=== PATIENT | female | born 1980 | race Caucasian/White ===

== ENCOUNTER → 2016-10-08 | Outpatient (CLI) | payer BC ==
[~2016-10-08] MED LIST: CIPR500T19; ENDOCORT PO; ENTO3CAP5 PO; FLAG500T; FLUC10TA; IMURAN; INFL10VL IV; MIRA33504 PO; PERC5TAB8; PRENATAL VITAMIN PO; REMICADE IV
[2016-10-08 12:28] LABS: BASO % 0.4 % (0.0-1.0); EOS # 0.1 K/mm3 (0.0-0.50); LARGE UNSTAINED CELL # 0.1 K/mm3 (0.0-0.4); LARGE UNSTAINED CELL % 1.7 % (0.0-4.0); LYMPH # 1.9 K/mm3 (1.5-4.5); LYMPH % 35.1 % (24.0-44.0); MEAN CORPUSCULAR HGB CONC 32.7 g/dl (32.0-36.5); MEAN CORPUSCULAR VOLUME 85.8 fl (80.0-96.0); MONO # 0.4 K/mm3 (0.0-0.8); MONO % 6.3 % (0.0-5.0); NEUTROPHILS % 54.6 % (36.0-66.0); PLATELET COUNT, AUTOMATED 199 k/mm3 (150-450); RED CELL DISTRIBUTION WIDTH 13.5 % (11.5-14.5); WHITE BLOOD COUNT 5.5 K/mm3 (4.0-10.0)
[2016-10-08 13:21] LABS: FOLATE 15.1 NG/ML; VITAMIN B12 LEVEL 444 PG/ML
[2016-10-08 13:22] LABS: ALBUMIN 3.8 GM/DL (3.2-5.2); ALBUMIN/GLOBULIN RATIO 1.09 (1.00-1.93); ALKALINE PHOSPHATASE 109 U/L (45-117); ALT/SGPT 9 U/L (12-78); ANION GAP 9 MEQ/L (8-16); AST/SGOT 15 U/L (15-37); BILIRUBIN,TOTAL 0.3 MG/DL (0.2-1.0); BLOOD UREA NITROGEN 13 MG/DL (7-18); CALCIUM LEVEL 9.3 MG/DL (8.5-10.1); CARBON DIOXIDE LEVEL 25 MEQ/L (21-32); CHLORIDE LEVEL 106 MEQ/L (98-107); CREATININE FOR GFR 0.56 MG/DL (0.55-1.02); GLOMERULAR FILTRATION RATE > 60.0 (>60); GLUCOSE, FASTING 97 MG/DL (70-105); POTASSIUM SERUM 3.8 MEQ/L (3.5-5.1); SODIUM LEVEL 140 MEQ/L (136-145); TOTAL PROTEIN 7.3 GM/DL (6.4-8.2)
[2016-10-08 13:37] LABS: ERYTHROCYTE SEDIMENTATION RATE 31 mm/hr (0-20)
== END ==
LOC: M LAB 11:24
PROVIDERS: ATTEND Physician Assistant Medical
DX: K50.80 Crohn's disease of both small and large intestine without complications (principal)

== ENCOUNTER 2020-01-12 15:41 | Inpatient (IN) | payer BC, OTHER ==
[~2020-01-12] VITALS: Ht 165.1 cm; Wt 57.1 kg
[2020-01-12] MEDS ORDERED: NS 1,000 ML IV ONE (16:15)
[2020-01-12] MEDS ORDERED: KETOROLAC 30 MG/ML 1ML VIAL IV ONE (16:15)
[2020-01-12] MEDS ORDERED: PANTOPRAZOLE 40MG VIAL (C9113 PER 1) IV ONE (16:15)
[2020-01-12 16:39] LABS: BASO % 0.2 % (0.0-1.0); EOS # 0.1 10^3/uL (0.0-0.5); EOS % 0.5 % (0.0-3.0); HEMATOCRIT 27.1 % (36.0-47.0); HEMOGLOBIN 7.8 g/dl (12.0-15.5); LYMPH # 3.4 10^3/uL (1.5-5.0); LYMPH % 26.4 % (24.0-44.0); MEAN CORPUSCULAR HEMOGLOBIN 23.8 pg (27.0-33.0); MEAN CORPUSCULAR HGB CONC 28.8 g/dl (32.0-36.5); MEAN CORPUSCULAR VOLUME 82.6 fl (80.0-96.0); MONO # 1.1 10^3/uL (0.0-0.8); MONO % 8.9 % (0.0-5.0); NEUTROPHILS # 8.1 10^3/uL (1.5-8.5); NEUTROPHILS % 63.5 % (36.0-66.0); PLATELET COUNT, AUTOMATED 376 10^3/uL (150-450); RED BLOOD COUNT 3.28 10^6/uL (4.00-5.40); WHITE BLOOD COUNT 12.8 10^3/uL (4.0-10.0)
[2020-01-12 17:20] LABS: ALBUMIN 3.1 GM/DL (3.2-5.2); ALT/SGPT 10 U/L (12-78); BILIRUBIN,DIRECT < 0.1 MG/DL (0.0-0.2); BILIRUBIN,TOTAL 0.3 MG/DL (0.2-1.0); BLOOD UREA NITROGEN 16 MG/DL (7-18); CARBON DIOXIDE LEVEL 28 MEQ/L (21-32); CHLORIDE LEVEL 101 MEQ/L (98-107); CREATININE FOR GFR 0.66 MG/DL (0.55-1.30); GLOMERULAR FILTRATION RATE > 60.0 (>58); GLUCOSE, FASTING 89 MG/DL (70-100); LIPASE 60 U/L (73-393); POTASSIUM SERUM 2.8 MEQ/L (3.5-5.1); SODIUM LEVEL 134 MEQ/L (136-145); TOTAL PROTEIN 6.6 GM/DL (6.4-8.2)
[2020-01-12] MEDS ORDERED: POTASSIUM CHLORIDE 10 MEQ SR TABLET PO ONE ×2 (17:30→22:00)
[2020-01-12] MEDS ORDERED: KCL 10MEQ/100ML SWI (KRUN) 10 MEQ in IV 1 EA IV ONE ×4 (17:30)
[2020-01-12] MEDS ORDERED: ONDANSETRON 4MG/2ML VIAL IV ONE (17:45)
[2020-01-12 18:03] VITALS: BP 128/88
[2020-01-12 18:18] VITALS: BP 125/84
[2020-01-12 19:00] VITALS: BP 126/79
[2020-01-12] MEDS: KCL 20MEQ in NS 1000ML 1,000 ML IV SCH (19:02)
[2020-01-12] MEDS ORDERED: MELA1TAB9 PO (19:10)
[2020-01-12] MEDS ORDERED: MULTCAP PO (19:10)
[2020-01-12] MEDS ORDERED: PRED10TA2 PO (19:10)
[2020-01-12] MEDS ORDERED: MESA0.37 PO (19:10)
[2020-01-12] MEDS ORDERED: ACET-653 PO (19:10)
[2020-01-12] MEDS ORDERED: PANT40TA29 PO (19:10)
[2020-01-12] MEDS ORDERED: STEL90IN SC (19:10)
[2020-01-12] MEDS ORDERED: UNIS25TA3 PO (19:10)
[2020-01-12] MEDS ORDERED: ONDA4TAB6 SL (19:10)
[2020-01-12] MEDS ORDERED: DICY20TA11 PO (19:10)
[2020-01-12] MEDS ORDERED: BUDE3CAP PO (19:10)
[2020-01-12] MEDS ORDERED: POTA10TA16 PO (19:10)
--- NOTE | 2020-01-12 19:12 | HPEPDOC ---
[facility] Medical History & Physical Date of Admission Jan 12, 2020 Date of Service: Jan 12, 2020 Attending Physician: KAM WOODS MD History and Physical CHIEF COMPLAINT: Abdominal pain HISTORY OF PRESENT ILLNESS: 39-year-old female with past medical history of Crohn's disease, multiple bowel strictures and bowel resections, presents from home with abdominal pain. Patient was recently admitted at [facility] for Crohn's flareup, underwent EGD, colonoscopy which did not anything pertinent as per patient. She reports that she also had a CT enterography which showed a stricture in her small bowel. She reports chronic abdominal pain which slightly worsened over the last few days and she thought her stricture was worsening and causing her to have a bowel obstruction. She is very focused on her illness and anxious about getting a stricture/obstruction that she doesn't eat anything at home. She reports very poor oral intake for the past month and significant weight loss. Patient is even requesting TPN/TPN at this time. She denies any fever, vomiting, diarrhea or urinary symptoms. She does report nausea. 10 point review of system is negative except for above PAST MEDICAL HISTORY: 1. Crohn's disease. PAST SURGICAL HISTORY: 1. Multiple bowel resections. SOCIAL HISTORY: Previous smoker. Denies alcohol use. Denies drug use FAMILY HISTORY: Mother had an unknown malignancy ALLERGIES: Please see below. HOME MEDICATIONS: Please see below. PHYSICAL EXAMINATION: VITAL SIGNS: Please see below. GENERAL: No distress HEENT: Normocephalic, atraumatic, moist mucous membranes NECK: Supple CARDIOVASCULAR EXAMINATION: S1, S2, no murmurs RESPIRATORY EXAMINATION: Clear to auscultation, no wheezing ABDOMINAL EXAMINATION: Soft, diffuse tenderness to palpation, no rebound or guar ding, nondistended, positive bowel sounds EXTREMITIES: Range of motion intact SKIN: No rash NEUROLOGICAL EXAMINATION: Alert and oriented 3, no focal deficits PSYCHIATRIC EXAMINATION: Calm and cooperative LABORATORY DATA: See below. IMAGING: CT abdomen and pelvis completed, read pending MICROBIOLOGY: Please see below. ASSESSMENT: 39-year-old female with past medical history of Crohn's disease and multiple bowel resections is being admitted for abdominal pain and hypokalemia. PLAN: 1. Abdominal pain. Questionable Crohn's flareup, CT abdomen and pelvis pending, currently taking prednisone 30 mg at home, will increase to 50 mg daily, IV fluids. We'll monitor clinical progression and treat accordingly. Vital Signs Vital Signs Date Time Temp Pulse Resp B/P (MAP) Pulse Ox O2 Delivery O2 Flow Rate FiO2 01/12/20 18:18 98.2 91 18 125/84 99 Room Air Laboratory Data Labs 24H Laboratory Tests 2 01/12/20 16:07: Immature Granulocyte % (Auto) 0.5, Neutrophils (%) (Auto) 63.5, Lymphocytes (%) (Auto) 26.4, Monocytes (%) (Auto) 8.9H, Eosinophils (%) (Auto) 0.5, Basophils (%) (Auto) 0.2, Neutrophils # (Auto) 8.1, Lymphocytes # (Auto) 3.4, Monocytes # (Auto) 1.1H, Eosinophils # (Auto) 0.1, Basophils # (Auto) 0.0, Nucleated Red Blood Cells % (auto) 0.0, Anion Gap 5L, Glomerular Filtration Rate > 60.0, Calcium Level 9.0, Total Bilirubin 0.3, Direct Bilirubin < 0.1, Aspartate Amino Transf (AST/SGOT) 10, Alanine Aminotransferase (ALT/SGPT) 10L, Alkaline Phosphatase 102, Total Protein 6.6, Albumin 3.1L, Albumin/Globulin Ratio 0.9L, Lipase 60L 01/12/20 18:24: CBC/BMP Laboratory Tests 01/12/20 16:07 Home Medications Scheduled Infliximab Injection (Remicade) 100 Mg/10 Ml Vial, 1 DOSE IV EVERY 8 WEEKS SEE COMMENT SECTION Allergies Coded Allergies: Penicillins (Verified Adverse Reaction, Unknown, RASG, 01/12/20) A-FIB/CHADSVASC A-FIB History Current/History of A-Fib/PAF?: No KAM WOODS MD Jan 12, 2020 19:12
[2020-01-12] MEDS ORDERED: predniSONE 10 MG TAB PO ONE (19:15)
[2020-01-12] MEDS ORDERED: predniSONE 20 MG TAB PO ONE (19:15)
[2020-01-12 19:25] LABS: FERRITIN 4 NG/ML (8-252); IRON (FE) 16 UG/DL (50-170); PERCENT SATURATION 4.5 % (13.2-45.0); TOTAL IRON BINDING CAPACITY 355 UG/DL (250-450)
[2020-01-12 19:58] VITALS: BP 121/76
[2020-01-12 20:40] VITALS: BP 119/76
[2020-01-12 22:00] VITALS: BP 118/88
--- NOTE | 2020-01-12 23:22 | REP ---
CT ABDOMEN AND PELVIS WITHOUT IV OR ORAL CONTRAST: HISTORY: Abdomen pain. Comparison CT study is from 12/08/2015. 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 Bowel gas pattern is normal. Axial CT images demonstrate that the lung raza are essentially clear. Normal adrenal glands are seen bilaterally. The liver and the spleen are normal in size and homogeneous in texture. No abnormality is noted in the gallbladder. Pancreas is unremarkable. Kidneys are morphologically intact. No retroperitoneal mass is seen. There are scattered surgical clips in the upper abdomen. There is an anastomotic suture line in the right colon, suggesting previous colon resection. There is a periumbilical ventral hernia transmitting a knuckle of unobstructed small bowel. No uterine or ovarian abnormality is observed. The uterus is retroverted. IMPRESSION: Postoperative changes. The appendix is surgically absent. Patient is status post colon resection. Ventral hernia in the periumbilical region with an unobstructed loop of small bowel. Retroverted uterus. Otherwise, negative. Electronically Signed by Juan Capellan MD 01/13/2020 07:57 A
[2020-01-12] MEDS: ACETAMINOPHEN TAB 650MG DOSE (2X325MG) PO PRN (23:27)
[2020-01-12] MEDS: MAALOX 30 ML SUSP *UDC PO PRN (23:28)
[2020-01-13] VITALS (10 sets, daily range): BP systolic 98–123; BP diastolic 64–81
[2020-01-13] MEDS ORDERED: ONDANSETRON 4 MG TAB PO ONE (00:45)
[2020-01-13] MEDS: RAMELTEON 8 MG TAB (ROZEREM) PO PRN (00:50)
[2020-01-13] MEDS: KCL 20MEQ in NS 1000ML 1,000 ML IV SCH (04:10)
[2020-01-13] MEDS: MAALOX 30 ML SUSP *UDC PO PRN (04:13)
[2020-01-13] MEDS ORDERED: ANEXSIA, NORCO 7.5MG/325MG TABLET(HYDROCODONE/APAP) PO ONE (04:30)
[2020-01-13 06:06] LABS: HEMATOCRIT 24.9 % (36.0-47.0); HEMOGLOBIN 7.5 g/dl (12.0-15.5); MEAN CORPUSCULAR HGB CONC 30.1 g/dl (32.0-36.5); PLATELET COUNT, AUTOMATED 335 10^3/uL (150-450); WHITE BLOOD COUNT 9.5 10^3/uL (4.0-10.0)
[2020-01-13 06:38] LABS: ALBUMIN 2.5 GM/DL (3.2-5.2); ALT/SGPT 10 U/L (12-78); BILIRUBIN,TOTAL 0.5 MG/DL (0.2-1.0); BLOOD UREA NITROGEN 11 MG/DL (7-18); CALCIUM LEVEL 8.5 MG/DL (8.5-10.1); CARBON DIOXIDE LEVEL 27 MEQ/L (21-32); CHLORIDE LEVEL 107 MEQ/L (98-107); CREATININE FOR GFR 0.38 MG/DL (0.55-1.30); GLOMERULAR FILTRATION RATE > 60.0 (>58); GLUCOSE, FASTING 110 MG/DL (70-100); MAGNESIUM LEVEL 2.1 MG/DL (1.8-2.4); POTASSIUM SERUM 4.6 MEQ/L (3.5-5.1); SODIUM LEVEL 138 MEQ/L (136-145); TOTAL PROTEIN 5.4 GM/DL (6.4-8.2)
[2020-01-13] MEDS ORDERED: IRON SUCROSE 100MG 5ML VIAL (J1756 PER 1MG) IV SCH (09:00)
[2020-01-13] MEDS: predniSONE 50 MG TAB PO SCH ×2 (10:23→15:47)
[2020-01-13] MEDS: ONDANSETRON 4MG/2ML VIAL IV PRN ×2 (10:42→23:43)
[2020-01-13] MEDS: MORPHINE 2 MG/ML 1ML VIAL (J2270) IV PRN ×2 (10:43→23:43)
[2020-01-13] MEDS: IRON SUCROSE 100 MG in NS 100 ML OVER 1 HR IV SCH (12:27)
--- NOTE | 2020-01-13 14:01 | IPNPDOC ---
Date Seen The patient was seen on 01/13/20. Progress Note SUBJECTIVE: Patient seen in the morning, reports severe epigastric pain with nausea, denies any vomiting or diarrhea. She reports poor oral intake due to nausea and abdominal pain. She is requesting a bowel resection due to strictures that were found on CT enterography at [facility], also requesting TPN at this time. Patient is encouraged to increase her oral intake as she was able to drink liquids in the morning without any vomiting. 10 point review of system is negative except for above PHYSICAL EXAMINATION: VITAL SIGNS: Please see below. GENERAL: No distress HEENT: Normocephalic, atraumatic, moist mucous membranes NECK: Supple CARDIOVASCULAR EXAMINATION: S1, S2, no murmurs RESPIRATORY EXAMINATION: Clear to auscultation, no wheezing ABDOMINAL EXAMINATION: Soft, mild tenderness to palpation, no rebound or guarding, nondistended, positive bowel sounds EXTREMITIES: Range of motion intact SKIN: No rash NEUROLOGICAL EXAMINATION: Alert and oriented 3, no focal deficits PSYCHIATRIC EXAMINATION: Calm and cooperative LABORATORY DATA: See below. MICROBIOLOGY: Please see below. ASSESSMENT: 39-year-old female with past medical history of Crohn's disease and multiple bowel resections is being admitted for abdominal pain and hypokalemia. PLAN: 1. Abdominal pain. Questionable Crohn's flareup, CT abdomen and pelvis without acute pathology, continue prednisone 50 mg daily, advance diet to regular, patient is strongly encouraged to increase oral intake as she was able to tolerate liquids in the morning, not vomiting or having any diarrhea at this time and CT abdomen and pelvis is negative. Patient is very anxious and concerned about her strictures and is requesting bowel surgery/TPN. 2. Iron deficiency anemia. Iron studies consistent with severe iron deficiency, Venofer 100 mg daily 10 days. VS, I&O, 24H, Fishbone Vital Signs/I&O Vital Signs Date Time Temp Pulse Resp B/P (MAP) Pulse Ox O2 Delivery O2 Flow Rate FiO2 01/13/20 10:53 18 01/13/20 04:00 97.3 80 109/73 (85) 98 Room Air I&O- Last 24 Hours up to 6 AM 01/13/20 06:00 Intake Total 3030 ml Output Total 1625 ml Balance 1405 ml Laboratory Data 24H LABS Laboratory Tests 2 01/12/20 16:07: Immature Granulocyte % (Auto) 0.5, Neutrophils (%) (Auto) 63.5, Lymphocytes (%) (Auto) 26.4, Monocytes (%) (Auto) 8.9H, Eosinophils (%) (Auto) 0.5, Basophils (%) (Auto) 0.2, Neutrophils # (Auto) 8.1, Lymphocytes # (Auto) 3.4, Monocytes # (Auto) 1.1H, Eosinophils # (Auto) 0.1, Basophils # (Auto) 0.0, Nucleated Red Blood Cells % (auto) 0.0, Anion Gap 5L, Glomerular Filtration Rate > 60.0, Calcium Level 9.0, Iron Level 16L, Total Iron Binding Capacity 355, Transferrin % Saturation 4.5L, Ferritin 4L, Total Bilirubin 0.3, Direct Bilirubin < 0.1, Aspartate Amino Transf (AST/SGOT) 10, Alanine Aminotransferase (ALT/SGPT) 10L, Alkaline Phosphatase 102, Total Protein 6.6, Albumin 3.1L, Albumin/Globulin Ratio 0.9L, Lipase 60L 01/12/20 18:24: Urine Color STRAW, Urine Appearance CLEAR, Urine pH 6.0, Urine Specific [place] 1.003, Urine Protein NEGATIVE, Urine Glucose (UA) NEGATIVE, Urine Ketones NEGATIVE, Urine Blood NEGATIVE, Urine Nitrite NEGATIVE, Urine Bilirubin NEGATIVE, Urine Urobilinogen 0.2, Urine Leukocyte Esterase TRACEH, Urine WBC (Auto) 1, Urine RBC (Auto) 1, Urine Hyaline Casts (Auto) 0, Urine Bacteria (Auto) NEGATIVE, Urine Squamous Epithelial Cells 0, Urine Sperm (Auto) 01/12/20 23:05: Methicillin-Resist S.aureus DNA PCR NOT DETECTED 01/13/20 05:30: Nucleated Red Blood Cells % (auto) 0.2H, Anion Gap 4L, Glomerular Filtration Rate > 60.0, Calcium Level 8.5, Total Bilirubin 0.5#, Aspartate Amino Transf (AST/SGOT) 7, Alanine Aminotransferase (ALT/SGPT) 10L, Alkaline Phosphatase 86, Total Protein 5.4L, Albumin 2.5L, Albumin/Globulin Ratio 0.9L, Magnesium Level 2.1 01/13/20 11:09: Lab Scanned Report Transfusion Record CBC/BMP Laboratory Tests 01/12/20 16:07 01/13/20 05:30 Microbiology Microbiology 01/12/20 Stool Occult Blood (RODRICK) - Final, Complete 01/12/20 Urine Culture, Received Pending KAM WOODS MD Jan 13, 2020 14:01
[2020-01-13] MEDS: ACETAMINOPHEN TAB 650MG DOSE (2X325MG) PO PRN (15:48)
[2020-01-13] MEDS ORDERED: MORPHINE 2 MG/ML 1ML VIAL (J2270) IV ONE (16:45)
[2020-01-13 18:19] LABS: HEMATOCRIT 19.9 % (36.0-47.0); HEMOGLOBIN 5.9 g/dl (12.0-15.5)
[2020-01-13] MEDS ORDERED: NS 1,000 ML IV SCH (18:28)
[2020-01-13] MEDS ORDERED: diphenhydrAMINE 25MG CAP PO ONE (18:30)
[2020-01-13] MEDS ORDERED: ACETAMINOPHEN TAB 650MG DOSE (2X325MG) PO ONE (18:30)
[2020-01-13] MEDS ORDERED: BUDESONIDE EC 3 MG CAP (ENTOCORT EC) PO SCH (19:15)
--- NOTE | 2020-01-13 19:17 | IPNPDOC ---
Date Seen The patient was seen on 01/13/20. Progress Note Notified by patient's primary regarding patient's bleeding episode this afternoon with Hb dropping down from 7.5 to 5.9. Patient was evaluated at bedside, appears comfortable and states that she does have chronic pain but worse recently. Pain is primarily illicited/worse with palpation rather than at rest. She does have history of multiple strictures and bowel resections in the past and has been on chronic prednisone, increased from 30mg to 50 mg since admission yesterday. 3 units pRBC ordered. General surgery called and consult placed for Dr. Cuevas. Patient expressed that she wishes to have part of the stricture that was noted on CT enteroscopy at [facility] to be resected. She also wishes to be on PPN, will defer this discussion to her primary provider. VS, I&O, 24H, Fishbone Vital Signs/I&O Vital Signs Date Time Temp Pulse Resp B/P (MAP) Pulse Ox O2 Delivery O2 Flow Rate FiO2 01/13/20 16:52 16 01/13/20 14:00 97.1 102 122/81 (95) 99 Room Air I&O- Last 24 Hours up to 6 AM 01/13/20 06:00 Intake Total 3030 ml Output Total 1625 ml Balance 1405 ml Laboratory Data 24H LABS Laboratory Tests 2 01/12/20 23:05: Methicillin-Resist S.aureus DNA PCR NOT DETECTED 01/13/20 05:30: Nucleated Red Blood Cells % (auto) 0.2H, Anion Gap 4L, Glomerular Filtration Rate > 60.0, Calcium Level 8.5, Magnesium Level 2.1, Total Bilirubin 0.5#, Aspartate Amino Transf (AST/SGOT) 7, Alanine Aminotransferase (ALT/SGPT) 10L, Alkaline Phosphatase 86, Total Protein 5.4L, Albumin 2.5L, Albumin/Globulin Ratio 0.9L 01/13/20 11:09: Lab Scanned Report Transfusion Record CBC/BMP Laboratory Tests 01/13/20 05:30 01/13/20 16:18 Microbiology Microbiology 01/12/20 Stool Occult Blood (RODRICK) - Final, Complete 01/12/20 Urine Culture, Received Pending GRISELDA EUCEDA MD Jan 13, 2020 19:17
[2020-01-13] MEDS: CIPROFLOXACIN 400 MG in IV 1 EA IV SCH (20:34)
[2020-01-13] MEDS: methylPREDNISolone 125MG 2ML VIAL IV SCH (20:34)
[2020-01-13] MEDS: PANTOPRAZOLE 40MG VIAL (C9113 PER 1) IV SCH (20:34)
[2020-01-14] VITALS (9 sets, daily range): BP systolic 102–130; BP diastolic 71–82
[2020-01-14] MEDS: RAMELTEON 8 MG TAB (ROZEREM) PO PRN (02:58)
[2020-01-14] MEDS: MAALOX 30 ML SUSP *UDC PO PRN (06:18)
[2020-01-14] MEDS: CIPROFLOXACIN 400 MG in IV 1 EA IV SCH ×2 (09:05→19:41)
[2020-01-14] MEDS: PANTOPRAZOLE 40MG VIAL (C9113 PER 1) IV SCH ×2 (09:06→19:40)
[2020-01-14] MEDS: methylPREDNISolone 125MG 2ML VIAL IV SCH ×2 (09:06→18:36)
[2020-01-14] MEDS: MORPHINE 2 MG/ML 1ML VIAL (J2270) IV PRN ×3 (09:07→19:46)
[2020-01-14 09:22] LABS: BLOOD UREA NITROGEN 16 MG/DL (7-18); CALCIUM LEVEL 8.4 MG/DL (8.5-10.1); CARBON DIOXIDE LEVEL 24 MEQ/L (21-32); CHLORIDE LEVEL 108 MEQ/L (98-107); CREATININE FOR GFR 0.38 MG/DL (0.55-1.30); GLOMERULAR FILTRATION RATE > 60.0 (>58); GLUCOSE, FASTING 121 MG/DL (70-100); POTASSIUM SERUM 4.3 MEQ/L (3.5-5.1); SODIUM LEVEL 140 MEQ/L (136-145)
[2020-01-14 10:54] LABS: HEMATOCRIT 30.4 % (36.0-47.0); MEAN CORPUSCULAR HEMOGLOBIN 27.7 pg (27.0-33.0); MEAN CORPUSCULAR HGB CONC 32.9 g/dl (32.0-36.5); MEAN CORPUSCULAR VOLUME 84.2 fl (80.0-96.0); PLATELET COUNT, AUTOMATED 284 10^3/uL (150-450); RED BLOOD COUNT 3.61 10^6/uL (4.00-5.40)
--- NOTE | 2020-01-14 11:38 | IPNPDOC ---
Subjective Date Seen The patient was seen on 01/14/20. Subjective Chief Complaint/HPI Patient complaining of abdominal pain and also has large amount of bright red and black stools last night. Patient received 3 units of PRBC last night No nausea, vomiting at the present time General: Denies: ROS Unobtainable, Chills, Night Sweats, Fatigue, Malaise, Normal Appetite, Other Symptoms Skin: Denies: Rash, Lesions, Jaundice, Bruising, Itching, Dry, Breakdown, Nail Changes, Other Pulmonary: Denies: Dyspnea, Cough, Pleuritic Chest Pain, Other Symptoms Cardiovascular: Denies: Chest Pain, Palpitations, Orthopnea, Paroxysmal Noc. Dyspnea, Edema, Lt Headedness, Other Symptoms Gastrointestinal: Reports: Abdominal Pain, Melena Hematologic: Denies: Bruising, Bleeding Excessively, Petecchia, Purpura, Enl arged Lymph Nodes, Other Hematologic Endocrine: Denies: Polydipsia, Polyphagia, Polyuria, Heat Intolerance, Cold Intolerance, Other Endocrine Sx Neurological: Denies: Weakness, Numbness, Incoordination, Change in speech, Confusion, Seizures, Other Symptoms Objective Physical Examination General Exam: Positive: Alert, Cooperative Eye Exam: Positive: PERRLA, Conjunctiva & lids normal ENT Exam: Positive: Atraumatic Neck Exam: Positive: Supple Chest Exam: Positive: Clear to auscultation, Normal air movement Heart Exam: Positive: Rate Normal, Normal S1 Abdomen Exam: Positive: Normal bowel sounds, Soft, Tenderness (positive tenderness all over the abdomen) Extremity Exam: Positive: Normal pulses Skin Exam: Positive: Nl turgor and temperature Neuro Exam: Positive: Strength at 5/5 X4 ext, Cranial Nerves 3-12 NL Assessment /Plan Problems (1) Acute blood loss anemia Status: Acute Problem Text: Patient's hemoglobin dropped to 5.9 yesterday She received 2 units of PRBC transfusion and repeat hemoglobin is 10 today Patient complaining of abdominal pain with bright red blood and dark stools per rectum which is slowly subsided during the morning I discussed the case with Dr. Lewis, is Dr. Cuevas is busy in the OR, but he will inform him regarding the consultation Will monitor this patient H&H every 8 hours and transfuse as needed Further recommendations as per surgery (2) Exacerbation of Crohn's disease Status: Acute Problem Text: Patient has a history of Crohn's disease. Follows up with the GI at [facility] She had a multiple surgeries done last 1 was for perforated bowel done by Dr. Cuevas Will start patient on IV steroids for disease progression Hold all by mouth meds Morphine sulfate 4 mg IV every 4 hours when necessary for pain Ativan 1 mg IV every 4 hours when necessary for anxiety Unfortunately GI is not available in house this week so we'll await recommendation from surgery (3) Hypokalemia Status: Acute Problem Text: Resolved Plan/VTE VTE Prophylaxis Ordered?: Yes VS, I&O, 24H, Fishbone Vital Signs/I&O Vital Signs Date Time Temp Pulse Resp B/P (MAP) Pulse Ox O2 Delivery O2 Flow Rate FiO2 01/14/20 09:07 16 01/14/20 06:00 98.9 70 128/82 (97) 99 Room Air I&O- Last 24 Hours up to 6 AM 01/14/20 06:00 Intake Total 2660 ml Output Total 0 ml Balance 2660 ml Laboratory Data 24H LABS Laboratory Tests 2 01/14/20 08:54: Anion Gap 8, Glomerular Filtration Rate > 60.0, Calcium Level 8.4L 01/14/20 10:31: Nucleated Red Blood Cells % (auto) 0.7H CBC/BMP Laboratory Tests 01/13/20 16:18 01/14/20 08:54 01/14/20 10:31 Microbiology Microbiology 01/12/20 Stool Occult Blood (RODRICK) - Final, Complete 01/12/20 Urine Culture - Final, Complete LUANA SENIOR MD Jan 14, 2020 11:38
[2020-01-14] MEDS ORDERED: LORazepam 2 MG/ML VIAL IM PRN (11:45)
[2020-01-14] MEDS ORDERED: LIDOCAINE 1% MDV 20ML VIAL As Ordered ONE (12:34)
[2020-01-14 13:04] LABS: BASO % 0.2 % (0.0-1.0); EOS % 0.1 % (0.0-3.0); LYMPH # 1.5 10^3/uL (1.5-5.0); LYMPH % 12.6 % (24.0-44.0); MONO # 0.6 10^3/uL (0.0-0.8); MONO % 4.8 % (0.0-5.0); NEUTROPHILS # 9.5 10^3/uL (1.5-8.5); NEUTROPHILS % 79.6 % (36.0-66.0)
[2020-01-14] MEDS: IRON SUCROSE 100 MG in NS 100 ML OVER 1 HR IV SCH (15:19)
[2020-01-14] MEDS: ONDANSETRON 4MG/2ML VIAL IV PRN (15:19)
--- NOTE | 2020-01-14 15:24 | REP ---
PICC line insertion under ultrasound guidance. The procedure was performed by CALEB Daly, under the direct supervision of Dr. eJnkins. The risks and benefits of the procedure were explained to the patient and informed consent was obtained both verbally and written. Directly prior to the start of the procedure, a formal timeout was completed in the procedure room. The right brachial this and basilic veins were localized using ultrasound guidance. The skin was prepped and draped in the sterile fashion. Using ultrasound guidance multiple attempts to gain access into one of the right brachial veins and basilic vein were attempted, all failed. The left basilic vein was then evaluated and localized using ultrasound guidance. The skin was prepped and draped in a sterile fashion. Using ultrasound guidance the left basilic vein was cannulated and a 0.018 guidewire was inserted and advanced to the SVC using fluoroscopic guidance. The needle was removed and a 5.5 Zimbabwean dilator and peel-away sheath was inserted over the guidewire. A 5.5 [place]an double lumen catheter was cut to the length of 35 cm. The dilator was removed and the catheter was inserted over the guide wire with the tip ending in the SVC. The peel-away sheath was removed and the catheter was flushed with heparinized saline as per hospital protocol. The catheter was affixed to the skin and a sterile dressing was applied. In total 4 ml 1% lidocaine 10 mg/ml was used as a local anesthetic. The patient tolerated the procedure well and there were no immediate complications. 0.3 minutes of fluoroscopy time was utilized for this procedure. Some fluoroscopic images are performed with last image hold technology. These images require no additional radiation. Reviewed by CALEB Franz 01/14/2020 02:51 P Electronically Signed by Pratik Jenkins MD 01/14/2020 03:16 P
[2020-01-14] MEDS: SODIUM CHLORIDE 0.9% INJ 10 ML SYR IV PRN (16:32)
[2020-01-14] MEDS ORDERED: FAT EMULSION IV 20% 500 ML IV SCH (18:00)
[2020-01-14] MEDS ORDERED: MULTIVITAMIN -ADULT INJECTION 10 ML, CR/CU/SE/MN/ZN INJ 1 ML in AMINO AC/ELECTROLYTE/DE... IV SCH (18:00)
[2020-01-14] MEDS: SODIUM CHLORIDE 0.9% INJ 10 ML SYR IV SCH (18:31)
[2020-01-14 19:56] LABS: BASO % 0.1 % (0.0-1.0); HEMATOCRIT 24.8 % (36.0-47.0); HEMOGLOBIN 8.3 g/dl (12.0-15.5); LYMPH # 1.6 10^3/uL (1.5-5.0); LYMPH % 8.7 % (24.0-44.0); MEAN CORPUSCULAR HEMOGLOBIN 27.9 pg (27.0-33.0); MEAN CORPUSCULAR HGB CONC 33.5 g/dl (32.0-36.5); MEAN CORPUSCULAR VOLUME 83.5 fl (80.0-96.0); MONO # 1.1 10^3/uL (0.0-0.8); MONO % 5.9 % (0.0-5.0); NEUTROPHILS % 84.4 % (36.0-66.0); PLATELET COUNT, AUTOMATED 314 10^3/uL (150-450); RED BLOOD COUNT 2.97 10^6/uL (4.00-5.40); WHITE BLOOD COUNT 17.8 10^3/uL (4.0-10.0)
[2020-01-15] VITALS (11 sets, daily range): BP systolic 118–134; BP diastolic 79–89
[2020-01-15] MEDS: methylPREDNISolone 125MG 2ML VIAL IV SCH ×3 (00:26→16:42)
[2020-01-15] MEDS: MORPHINE 2 MG/ML 1ML VIAL (J2270) IV PRN ×4 (00:27→20:35)
[2020-01-15] MEDS: ONDANSETRON 4MG/2ML VIAL IV PRN ×3 (01:32→19:01)
[2020-01-15 04:09] LABS: BASO % 0.1 % (0.0-1.0); HEMATOCRIT 22.5 % (36.0-47.0); HEMOGLOBIN 7.5 g/dl (12.0-15.5); LYMPH # 1.2 10^3/uL (1.5-5.0); LYMPH % 6.5 % (24.0-44.0); MEAN CORPUSCULAR HEMOGLOBIN 28.5 pg (27.0-33.0); MEAN CORPUSCULAR HGB CONC 33.3 g/dl (32.0-36.5); MEAN CORPUSCULAR VOLUME 85.6 fl (80.0-96.0); MONO # 0.7 10^3/uL (0.0-0.8); MONO % 3.8 % (0.0-5.0); PLATELET COUNT, AUTOMATED 289 10^3/uL (150-450); RED BLOOD COUNT 2.63 10^6/uL (4.00-5.40); WHITE BLOOD COUNT 18.2 10^3/uL (4.0-10.0)
[2020-01-15 04:30] LABS: BLOOD UREA NITROGEN 21 MG/DL (7-18); CALCIUM LEVEL 7.7 MG/DL (8.5-10.1); CARBON DIOXIDE LEVEL 31 MEQ/L (21-32); CHLORIDE LEVEL 106 MEQ/L (98-107); CREATININE FOR GFR 0.41 MG/DL (0.55-1.30); GLOMERULAR FILTRATION RATE > 60.0 (>58); GLUCOSE, FASTING 171 MG/DL (70-100); POTASSIUM SERUM 4.3 MEQ/L (3.5-5.1); SODIUM LEVEL 141 MEQ/L (136-145)
[2020-01-15] MEDS: SODIUM CHLORIDE 0.9% INJ 10 ML SYR IV SCH ×2 (04:36→18:06)
[2020-01-15] MEDS: LORazepam 2 MG/ML VIAL IV PRN ×3 (04:59→22:04)
[2020-01-15] MEDS: PANTOPRAZOLE 40MG VIAL (C9113 PER 1) IV SCH ×2 (09:16→20:29)
[2020-01-15] MEDS: CIPROFLOXACIN 400 MG in IV 1 EA IV SCH ×2 (09:17→20:29)
[2020-01-15] MEDS ORDERED: NS 1,000 ML IV SCH (11:00)
[2020-01-15] MEDS: IRON SUCROSE 100 MG in NS 100 ML OVER 1 HR IV SCH (11:11)
[2020-01-15 11:23] LABS: BASO % 0.1 % (0.0-1.0); LYMPH # 2.3 10^3/uL (1.5-5.0); LYMPH % 9.9 % (24.0-44.0); MEAN CORPUSCULAR HEMOGLOBIN 28.8 pg (27.0-33.0); MEAN CORPUSCULAR HGB CONC 32.6 g/dl (32.0-36.5); MEAN CORPUSCULAR VOLUME 88.5 fl (80.0-96.0); MONO # 1.8 10^3/uL (0.0-0.8); MONO % 7.9 % (0.0-5.0); NEUTROPHILS # 18.2 10^3/uL (1.5-8.5); NEUTROPHILS % 78.9 % (36.0-66.0); PLATELET COUNT, AUTOMATED 339 10^3/uL (150-450); RED BLOOD COUNT 2.08 10^6/uL (4.00-5.40)
[2020-01-15 11:27] LABS: HEMATOCRIT 18.4 % (36.0-47.0)
[2020-01-15] MEDS: OCTREOTIDE ACETATE 100MCG/ML VIAL (J2354 PER 25MCG) IV SCH ×2 (12:18→18:49)
--- NOTE | 2020-01-15 13:22 | CR ---
DATE OF CONSULTATION: 01/14/2020 REASON FOR CONSULTATION: Crohn's disease and gastrointestinal bleeding. HISTORY OF PRESENT ILLNESS: The patient is a pleasant 39-year-old woman who was admitted by the hospitalist service yesterday for treatment of gastrointestinal (GI) bleeding with a background history of Crohn's disease and abdominal pain. She has a long history of Crohn's disease. Many years ago she had undergone several operations for bowel resection or stricturoplasties. I had met the patient in 2008 when she was admitted with abdominal pain and ultimately was diagnosed with a small bowel perforation associated with her Crohn's disease. She underwent a limited resection and repair of the perforation. She has generally done fairly well, she says, over the last 10 years. She was on Humira for a time and has more recently been followed by Dr. Castillo in [place] and has been using a different biologic agent. For the last 6 months, she reports she has been having significant symptoms of upper abdominal pain. She was recently admitted at [facility] for further evaluation. She apparently spent 2 weeks in the hospital and had a number of tests, including a CT enterography, which she reports identified two upper abdominal small bowel strictures which she believes are causing her significant pain. She also reports that about a month ago she had an upper and lower endoscopy performed and that her colon is fine. She has recently been losing weight because of pain with eating. She has been back on steroids for management. She presented to the emergency department around 4 o'clock in the afternoon of 01/12/2020 complaining of abdominal pain. She was noted to be quite anemic. She was found to have dark stool by report with passage of some blood actually after the time of presentation. She was admitted by the hospitalist for management, and I was asked to consult regarding her abdominal pain and Crohn's disease. ALLERGIES: Reported to PENICILLINS. MEDICATIONS PRIOR TO ADMISSION: Include Tylenol with codeine as needed for pain, budesonide 3 mg by mouth three times a day, dicyclomine 20 mg by mouth four times daily as needed for pain, doxylamine succinate 25 mg by mouth at bedtime, melatonin 5 mg by mouth at bedtime, mesalamine ER 1.5 grams by mouth daily, multivitamin daily at bedtime, Zofran 4 mg orally dissolving tablets sublingually as needed for nausea and vomiting, Protonix 40 mg by mouth daily, potassium 10 mEq by mouth daily, prednisone 30 mg by mouth daily and Stelara 90 mg subcu every 8 weeks. She had started this within the last 3 months or so. MEDICAL HISTORY: Medical history is significant primarily for her Crohn's disease, which has been fairly quiescent until July of this year. SURGICAL HISTORY: Involves several prior operations when she was in her 20s for resection and stricturoplasties. She reports that her last surgery was in 2008 when she had an operation at [facility] for a perforation. SOCIAL HISTORY: The patient reports that she is employed at [employer] in [facility] but has been off work or working from home recently. She is a former smoker and denies any alcohol use. FAMILY HISTORY: Shows no other history of inflammatory bowel disease. REVIEW OF SYSTEMS: Shows no history of chest pain or palpitations or heart problems. She has no lung or breathing issues. There is no history of renal stones or infections. She denies any history of deep vein thrombosis (DVT) or pulmonary embolus. There are no bone or joint issues of note. She denies any history of prior rectal bleeding. PHYSICAL EXAM: Reveals a pleasant young woman lying quietly on the hospital bed. She is alert and seems very knowledgeable about her medical history. Sclerae are anicteric. Mucous membranes are moist. Heart exam shows a regular rhythm, perhaps 70-80. The lungs are clear. The abdomen is flat. She had an old lower midline abdominal scar. There is a small hernia at the area of the umbilicus. She has active bowel sounds present. The abdomen is flat. She complained of some tenderness in the epigastrium with palpation. Extremities are without edema. Rectal exam is not performed. LABORATORY STUDIES: At the time of presentation showed a hemoglobin of 8, hematocrit 27, and a white count 13,000. This morning her labs showed a white count of 12, hemoglobin 10, hematocrit of 30. Her chemistries yesterday showed a sodium of 134, potassium 2.8, chloride 101, CO2 of 28, BUN of 16, creatinine 0.7 and a glucose of 89. This morning her sodium was 140, potassium 4.3, chloride 108, CO2 of 24, BUN of 8, creatinine of 0.4 and a glucose of 121. She has received 3 units of packed red blood cells since admission. She had a CT scan of her abdomen and pelvis on 01/12/2020 at presentation. This was interpreted by the radiologist as showing scattered surgical clips with an anastomotic suture line in the right colon suggesting a previous resection. There was a periumbilical ventral hernia, which contained a small knuckle of unobstructed small bowel. The appendix was noted to be absent. There was no evidence of obstruction. IMPRESSION: 1. Longstanding Crohn's disease of the small bowel, reportedly with two small bowel strictures identified on recent CT enterography. 2. GI bleed of uncertain source. RECOMMENDATIONS: At this point, the patient needs to continue her Crohn's medications. Unfortunately, this will involve the steroids for now. The source of her bleeding is not clear, and she reports this is a new thing for her. She has required 3 units of packed red blood cells since admission. She reports that the dark stool seems to have diminished since admission. Certainly she is at risk for peptic ulcer disease. The steroids are certainly a major risk factor for this. She does report having had an upper endoscopy about a month ago, which she reported did not show anything of significance, but we have no reports from this as this was done in [place]. She also reports having had a colonoscopy, which showed no abnormality. Certainly if her bleeding persists, then a repeat upper endoscopy would be warranted. It is possible that she could be bleeding from her Crohn's disease, though this is a relatively infrequent result of the Crohn's. It may be reasonable to consider adding Carafate to her medications to empirically treat her for the possibility of gastritis or ulcer. Transfusions should be continued as necessary. If an upper endoscopy did not show an upper GI source for bleeding, then a bleeding scan may be warranted to try to better identify the source of her bleed. VANESA
--- NOTE | 2020-01-15 13:34 | IPNPDOC ---
Subjective Date Seen The patient was seen on 01/15/20. Subjective Chief Complaint/HPI Patient was feeling great yesterday but she is feels a little tired today, but abdominal pain is under control with pain and meds but wishes are anti-medics meds to be increased to every 4 hours. General: Reports: Fatigue; Denies: ROS Unobtainable, Chills, Night Sweats, Malaise, Normal Appetite, Other Symptoms Constitutional: Denies: Chills, Fever, Malaise, Night Sweats, Weakness, Fatigue, Weight Loss, Lethargy, Other Eyes: Denies: Pain, Vision change, Conjunctivae inflammation, Eyelid inflammation, Redness, Other ENT: Denies: Head Aches, Ear Pain, Dysphagia, Sinus Congestion, Post Nasal Drip, Sore Throat, Epistaxis, Other Symptoms Skin: Denies: Rash, Lesions, Jaundice, Bruising, Itching, Dry, Breakdown, Nail Changes, Other Pulmonary: Denies: Dyspnea, Cough, Pleuritic Chest Pain, Other Symptoms Cardiovascular: Denies: Chest Pain, Palpitations, Orthopnea, Paroxysmal Noc. Dyspnea, Edema, Lt Headedness, Other Symptoms Gastrointestinal: Reports: Abdominal Pain, Melena Genitourinary: Denies: Dysuria, Frequency, Incontinence, Hematuria, Retention, Other Symptoms Hematologic: Denies: Bruising, Bleeding Excessively, Petecchia, Purpura, Enlarged Lymph Nodes, Other Hematologic Musculoskeletal: Denies: Neck Pain, Back Pain, Shoulder Pain, Arm Pain, Hand Pain, Leg Pain, Foot Pain, Joint Pain, Muscle Pain, Spasms, Other Symptoms Neurological: Denies: Weakness, Numbness, Incoordination, Change in speech, Confusion, Seizures, Other Symptoms Psych: Denies: Mood Normal, Anxiety, Depression, Memory Issues, Thoughts of Self Harm, Anger, Thoughts of Harming Other, Other Psych Objective Physical Examination General Exam: Positive: Alert, Cooperative Eye Exam: Positive: PERRLA, Conjunctiva & lids normal ENT Exam: Positive: Atraumatic Neck Exam: Positive: Supple Chest Exam: Positive: Clear to auscultation, Normal air movement Heart Exam: Positive: Rate Normal, Normal S1 Abdomen Exam: Positive: Normal bowel sounds, Soft, Tenderness (positive tenderness all over the abdomen) Extremity Exam: Positive: Normal pulses Skin Exam: Positive: Nl turgor and temperature Neuro Exam: Positive: Strength at 5/5 X4 ext, Cranial Nerves 3-12 NL Assessment /Plan Problems (1) Acute blood loss anemia Status: Acute Problem Text: Patient's hemoglobin dropped to 5.9 yesterday She received 3 units of PRBC transfusion and repeat hemoglobin is 10 yesterday Patient is still complaining of bleeding per rectum. I'll repeat hemoglobin is 6.0 Will transfuse 2 units of PRBC again today On extension discussion with Dr. Lewis patient's needs to be transferred to [facility] as she might require RBC tagged scan and angiogram which which we don't have available here. Also probably requires colorectal surgeon for possible bleeding from small bowel. Patient is a GI at [facility] Dr. burnette [phone] was also called and covering physician, Dr. Codie Lewis called me back and also agreed with the transfer to [facility] as patient is refusing her transfer to [facility] for personal reasons [facility] was called and requested transfer, according to transfer, they don't have been available now but they will call me back was the bed is available. In the meantime, will continue octreotide PPI as TPN blood transfusions as needed and pain management with morphine and Zofran as needed. CBC every 8 hour and transfuse as needed (2) Exacerbation of Crohn's disease Status: Acute Problem Text: Patient has a history of Crohn's disease. Follows up with the GI at [place] She had a multiple surgeries done last 1 was for perforated bowel done by Dr. Cuevas Will start patient on IV steroids for disease progression Hold all by mouth meds Morphine sulfate 4 mg IV every 4 hours when necessary for pain Ativan 1 mg IV every 4 hours when necessary for anxiety Unfortunately GI as not available this week and this hospital (3) Hypokalemia Status: Acute Problem Text: Resolved Plan/VTE VTE Prophylaxis Ordered?: Yes VS, I&O, 24H, Fishbone Vital Signs/I&O Vital Signs Date Time Temp Pulse Resp B/P (MAP) Pulse Ox O2 Delivery O2 Flow Rate FiO2 01/15/20 12:58 98.2 103 18 122/81 97 Room Air I&O- Last 24 Hours up to 6 AM 01/15/20 06:00 Intake Total 1480 ml Output Total 850 ml Balance 630 ml Laboratory Data 24H LABS Laboratory Tests 2 01/14/20 19:44: Immature Granulocyte % (Auto) 0.9, Neutrophils (%) (Auto) 84.4H, Lymphocytes (%) (Auto) 8.7L, Monocytes (%) (Auto) 5.9H, Eosinophils (%) (Auto) 0.0, Basophils (%) (Auto) 0.1, Neutrophils # (Auto) 15.0H, Lymphocytes # (Auto) 1.6, Monocytes # (Auto) 1.1H, Eosinophils # (Auto) 0.0, Basophils # (Auto) 0.0, Nucleated Red Blood Cells % (auto) 0.4H 01/14/20 20:48: Bedside Glucose (Misc Panel) 224H 01/15/20 00:50: Bedside Glucose (Misc Panel) 175H 01/15/20 03:54: Immature Granulocyte % (Auto) 1.6, Neutrophils (%) (Auto) 88.0H, Lymphocytes (%) (Auto) 6.5L, Monocytes (%) (Auto) 3.8, Eosinophils (%) (Auto) 0.0, Basophils (%) (Auto) 0.1, Neutrophils # (Auto) 16.0H, Lymphocytes # (Auto) 1.2L, Monocytes # (Auto) 0.7, Eosinophils # (Auto) 0.0, Basophils # (Auto) 0.0, Nucleated Red Blood Cells % (auto) 0.5H, Anion Gap 4L, Glomerular Filtration Rate > 60.0, Calcium Level 7.7L 01/15/20 05:36: Bedside Glucose (Misc Panel) 196H 01/15/20 11:03: Immature Granulocyte % (Auto) 3.2H, Neutrophils (%) (Auto) 78.9H, Lymphocytes (%) (Auto) 9.9L, Monocytes (%) (Auto) 7.9H, Eosinophils (%) (Auto) 0.0, Basop hils (%) (Auto) 0.1, Neutrophils # (Auto) 18.2H, Lymphocytes # (Auto) 2.3, Monocytes # (Auto) 1.8H, Eosinophils # (Auto) 0.0, Basophils # (Auto) 0.0, Nucleated Red Blood Cells % (auto) 1.6H CBC/BMP Laboratory Tests 01/14/20 19:44 01/15/20 03:54 01/15/20 11:03 Microbiology Microbiology 01/12/20 Stool Occult Blood (RODRICK) - Final, Complete 01/12/20 Urine Culture - Final, Complete LUANA SENIOR MD Jan 15, 2020 13:34
--- NOTE | 2020-01-15 15:19 | DS.PDOC ---
Discharge Summary General Date of Admission Jan 12, 2020 at 18:55 Date of Discharge 01/15/20 Discharge Summary PROCEDURES PERFORMED DURING STAY: None. ADMITTING DIAGNOSES: 1. Exacerbation of Crohn's disease, hypokalemia. DISCHARGE DIAGNOSES: 1. Acute blood loss anemia, exacerbation of Crohn's disease, nutrition, hypokalemia. COMPLICATIONS/CHIEF COMPLAINT: Crohn's Disease,Hypokalemia. HISTORY OF PRESENT ILLNESS: HISTORY OF PRESENT ILLNESS: 39-year-old female with past medical history of Crohn's disease, multiple bowel strictures and bowel resections, presents from home with abdominal pain. Patient was recently admitted at [facility] for Crohn's flareup, underwent EGD, colonoscopy which did not anything pertinent as per patient. She reports that she also had a CT enterography which showed a stricture in her small bowel. She reports chronic abdominal pain which slightly worsened over the last few days and she thought her stricture was worsening and causing her to have a bowel obst ruction. She is very focused on her illness and anxious about getting a stricture/obstruction that she doesn't eat anything at home. She reports very poor oral intake for the past month and significant weight loss. Patient is even requesting TPN/TPN at this time. She denies any fever, vomiting, diarrhea or urinary symptoms. She does report nausea. 10 point review of system is negative except for above. HOSPITAL COURSE: Patient was found to have acute blood loss anemia. A few hours after admission Patient's hemoglobin dropped to 5.9 yesterday She received 3 units of PRBC transfusion and repeat hemoglobin is 10 yesterday Patient is still complaining of bleeding per rectum. I'll repeat hemoglobin is 6.0 Will transfuse 2 units of PRBC again today On extension discussion with Dr. Lewis patient's needs to be transferred to [facility] as she might require RBC tagged scan and angiogram which which we don't have available here. Also probably requires colorectal surgeon for possible bleeding from small bowel. Patient is a GI at [facility] Dr. burnette [phone] was also called and covering physician, Dr. Codie Lewis called me back and also agreed with the transfer to [facility] as patient is refusing her transfer to [facility] for personal reasons [facility] was called and requested transfer, according to transfer, they don't have been available now but they will call me back was the bed is available. In the meantime, will continue octreotide PPI as TPN blood transfusions as needed and pain management with morphine and Zofran as needed. CBC every 8 hour and transfuse as needed Exacerbation of Crohn's disease: Patient has a history of Crohn's disease. Fol lows up with the GI at [place] She had a multiple surgeries done last 1 was for perforated bowel done by Dr. Cuevas Will start patient on IV steroids for disease progression Hold all by mouth meds Morphine sulfate 4 mg IV every 4 hours when necessary for pain Ativan 1 mg IV every 4 hours when necessary for anxiety Unfortunately GI as not available this week and this hospital hypokalemia: Resolved with supplementation. DISCHARGE MEDICATIONS: Please see below. ALLERGIES: Please see below. PHYSICAL EXAMINATION ON DISCHARGE: VITAL SIGNS: Please see below. GENERAL: Within normal limits HEENT: PERRLA. Extraocular muscles intact NECK: Supple CARDIOVASCULAR EXAMINATION: S1, S2, regular RESPIRATORY EXAMINATION: Clear to A&P ABDOMINAL EXAMINATION: , Soft. Positive tenderness right lower quadrant and generalized tenderness all over the abdomen EXTREMITIES: No clubbing, cyanosis, edema SKIN: Normal NEUROLOGICAL EXAMINATION: No focal motor sensory deficit PSYCHIATRIC EXAMINATION: Normal LABORATORY DATA: Please see below. IMAGING: CT abdomen and pelvis:IMPRESSION: Postoperative changes. The appendix is surgically absent. Patient is status post colon resection. Ventral hernia in the periumbilical region with an unobstructed loop of small bowel. Retroverted uterus. Otherwise, negative. PROGNOSIS: Good ACTIVITY: As tolerated. DIET: Nothing by mouth DISCHARGE PLAN: Discharged to [facility] DISPOSITION: . [facility] DISCHARGE INSTRUCTIONS: 1. As above. ITEMS TO FOLLOWUP ON ON OUTPATIENT: 1. As prior to shaking facility. DISCHARGE CONDITION: Stable. TIME SPENT ON DISCHARGE: 38 minutes. Vital Signs/I&Os Vital Signs Date Time Temp Pulse Resp B/P (MAP) Pulse Ox O2 Delivery O2 Flow Rate FiO2 01/15/20 14:56 98.1 96 17 132/86 100 Room Air I&O- Last 24 Hours up to 6 AM 01/15/20 06:00 Intake Total 1480 ml Output Total 850 ml Balance 630 ml Laboratory Data Labs 24H Laboratory Tests 2 01/14/20 19:44: Immature Granulocyte % (Auto) 0.9, Neutrophils (%) (Auto) 84.4H, Lymphocytes (%) (Auto) 8.7L, Monocytes (%) (Auto) 5.9H, Eosinophils (%) (Auto) 0.0, Basophils (%) (Auto) 0.1, Neutrophils # (Auto) 15.0H, Lymphocytes # (Auto) 1.6, Monocytes # (Auto) 1.1H, Eosinophils # (Auto) 0.0, Basophils # (Auto) 0.0, Nucleated Red Blood Cells % (auto) 0.4H 01/14/20 20:48: Bedside Glucose (Misc Panel) 224H 01/15/20 00:50: Bedside Glucose (Misc Panel) 175H 01/15/20 03:54: Immature Granulocyte % (Auto) 1.6, Neutrophils (%) (Auto) 88.0H, Lymphocytes (%) (Auto) 6.5L, Monocytes (%) (Auto) 3.8, Eosinophils (%) (Auto) 0.0, Basophils (%) (Auto) 0.1, Neutrophils # (Auto) 16.0H, Lymphocytes # (Auto) 1.2L, Monocytes # (Auto) 0.7, Eosinophils # (Auto) 0.0, Basophils # (Auto) 0.0, Nucleated Red Blood Cells % (auto) 0.5H, Anion Gap 4L, Glomerular Filtration Rate > 60.0, Calcium Level 7.7L 01/15/20 05:36: Bedside Glucose (Misc Panel) 196H 01/15/20 11:03: Immature Granulocyte % (Auto) 3.2H, Neutrophils (%) (Auto) 78.9H, Lymphocytes (%) (Auto) 9.9L, Monocytes (%) (Auto) 7.9H, Eosinophils (%) (Auto) 0.0, Basophils (%) (Auto) 0.1, Neutrophils # (Auto) 18.2H, Lymphocytes # (Auto) 2.3, Monocytes # (Auto) 1.8H, Eosinophils # (Auto) 0.0, Basophils # (Auto) 0.0, Nucleated Red Blood Cells % (auto) 1.6H CBC/BMP Laboratory Tests 01/14/20 19:44 01/15/20 03:54 01/15/20 11:03 FSBS Laboratory Tests Test 01/14/20 20:48 01/15/20 00:50 01/15/20 05:36 Range/Units Bedside Glucose (Misc Panel) 224 175 196 70-105 MG/DL Microbiology Microbiology 01/12/20 Stool Occult Blood (RODRICK) - Final, Complete 01/12/20 Urine Culture - Final, Complete Discharge Medications Scheduled Methylprednisolone (Solu-Medrol 125 mg Vial) 125 Mg/2 Ml Vial, 60 MG IV Q8H Octreotide Acetate (Octreotide Acetate) 100 Mcg/1 Ml Vial, 100 MCG IV Q8H Pantoprazole Sodium (Pantoprazole Sodium) 40 Mg Vial, 40 MG IV Q12H Scheduled PRN Lorazepam (Ativan) 2 Mg/1 Ml Vial, 1 MG IV Q4HP PRN for ANXIETY Morphine Sulfate (Morphine Sulfate) 2 Mg/1 Ml Vial, 4 MG IV Q4HP PRN for PAIN LEVEL 5-10 Ondansetron HCl/Pf (Ondansetron HCl 4 mg/2 ml Vial) 4 Mg/2 Ml Vial, 4 MG IV Q4HP PRN for NAUSEA OR VOMITING Allergies Coded Allergies: Penicillins (Verified Adverse Reaction, Unknown, RASG, 01/12/20) LUANA SENIOR MD Jan 15, 2020 15:19
[2020-01-15] MEDS ORDERED: OCTR100I IV (15:27)
[2020-01-15] MEDS ORDERED: ATIV2INJ5 IV (15:27)
[2020-01-15] MEDS ORDERED: PANT40IN4 IV (15:27)
[2020-01-15] MEDS ORDERED: METH125VL IV (15:27)
[2020-01-15] MEDS ORDERED: MORP2INJ4 IV (15:27)
[2020-01-15] MEDS ORDERED: ONDA4INJ4 IV (15:27)
[2020-01-15] MEDS ORDERED: FAT EMULSION IV 20% 500 ML IV SCH (18:00)
[2020-01-15] MEDS ORDERED: AMINO AC/ELECTROLYTE/DEX/CALC 2,000 ML IV SCH (18:00)
--- NOTE | 2020-01-15 18:13 | IPN ---
DATE: 01/15/2020 Patient has been admitted with gastrointestinal (GI) bleed and what appears to be a Crohn's exacerbation. After reviewing her studies and reports of Dr. Cuevas, as well as discussing this with gastroenterology and [facility], the patient has had a recent upper and lower endoscopy and the patient had some bleeding at that time and anemia. The thought was that she probably had a small bowel source, although initially Dr. Cuevas did not know about this additional information I was able to glean from her the gastroenterology group. She, at this point, had significant anemia today. Fortunately she has not been hypotensive and does not appear septic, although has had. as stated earlier, significant bloody diarrheal bowel movements. She is being transfused at this time. PHYSICAL EXAMINATION: Her abdomen is mildly distended, mildly tender in the left upper quadrant and some mild discomfort in the left lower quadrant. This correlates with the distension appreciated on the CAT scan in the left upper quadrant and the inflammatory process. The patient has a questionable narrowing and she was told that she has two areas of narrowing in the small bowel, although I am not able to reproduce that finding. At this point, we do not have availability for red-tagged scan or interventionalist to evaluate where the specific bleeding site is from. We do not have the capability of small bowel enteroscopy and thus blind resection of small bowel is unwarranted at this time. Thus, I would recommend that we transfer her to a higher level of care. The patient understands and agrees with this. There has been some discussion whether a balloon enteroscopy with dilatation would be one of those things planned for her, but with her bleeding issues, I feel that needs to get under control first. I have started some additional octreotide, although that may not provide any substantial additional benefit for her. Otherwise, we will continue her providing supportive care until we are able to transfer her. I have discussed my recommendations with the hospitalists, and they agree and will facilitate the transfer.
[2020-01-15 20:33] LABS: BASO % 0.2 % (0.0-1.0); HEMATOCRIT 26.9 % (36.0-47.0); LYMPH # 1.7 10^3/uL (1.5-5.0); MEAN CORPUSCULAR HEMOGLOBIN 29.7 pg (27.0-33.0); MEAN CORPUSCULAR HGB CONC 34.6 g/dl (32.0-36.5); MEAN CORPUSCULAR VOLUME 85.9 fl (80.0-96.0); MONO # 1.2 10^3/uL (0.0-0.8); MONO % 5.5 % (0.0-5.0); NEUTROPHILS # 17.7 10^3/uL (1.5-8.5); NEUTROPHILS % 81.8 % (36.0-66.0); RED BLOOD COUNT 3.13 10^6/uL (4.00-5.40); WHITE BLOOD COUNT 21.6 10^3/uL (4.0-10.0)
[2020-01-15] MEDS: SODIUM CHLORIDE 0.9% INJ 10 ML SYR IV PRN ×2 (20:35→22:05)
[2020-01-15 20:36] LABS: HEMOGLOBIN 9.3 g/dl (12.0-15.5); PLATELET COUNT, AUTOMATED 210 10^3/uL (150-450)
[2020-01-16] MEDS: methylPREDNISolone 125MG 2ML VIAL IV SCH (00:52)
[2020-01-16] MEDS: MORPHINE 2 MG/ML 1ML VIAL (J2270) IV PRN (00:53)
[2020-01-16] MEDS: ONDANSETRON 4MG/2ML VIAL IV PRN (02:00)
== END 2020-01-16 02:05 | disposition short-term general hospital (02) | DRG 386 ==
LOC: M ED 15:41 → EEVIPCON 18:55 → M ED INP 18:55 → ENRESERV 19:45 → M MSPAV 20:40
PROVIDERS: ADMIT Internal Medicine; ATTEND Internal Medicine
PROC: 30233N1 Transfusion of Nonautologous Red Blood Cells into Peripheral Vein, Percutaneous Approach (ICD-10-PCS; 2020-01-12)
PROC: 3E0436Z Introduction of Nutritional Substance into Central Vein, Percutaneous Approach (ICD-10-PCS; 2020-01-14)
PROC: 02HV33Z Insertion of Infusion Device into Superior Vena Cava, Percutaneous Approach (ICD-10-PCS; principal; 2020-01-14 13:00)
DX: K50.911 Crohn's disease, unspecified, with rectal bleeding (principal); D62 Acute posthemorrhagic anemia; E87.6 Hypokalemia; R63.4 Abnormal weight loss; K43.9 Ventral hernia without obstruction or gangrene; Z88.0 Allergy status to penicillin; Z90.49 Acquired absence of other specified parts of digestive tract; Z87.891 Personal history of nicotine dependence; Z79.899 Other long term (current) drug therapy; Z79.52 Long term (current) use of systemic steroids

== ENCOUNTER 2022-04-23 09:55 | Inpatient (IN) | payer OTHER ==
[~2022-04-23] VITALS: Ht 165.1 cm; Wt 59.0 kg
[~2022-04-23 09:55] MED LIST changes: +ACET-653 PO; +ATIV2INJ5 IV; +BUDE3CAP PO; +DICY20TA20 PO; +MELA1TAB9 PO; +MESA0.37 PO; +METH125VL IV; +MORP2INJ4 IV; +MULTCAP PO; +OCTR100I IV; +ONDA4INJ4 IV; +ONDA4TAB6 SL; +PANT40IN4 IV; +PANT40TA29 PO; +POTA-149 PO; +PRED10TA2 PO; +STEL90IN SC; +UNIS25TA3 PO
[2022-04-23 12:10] LABS: BASO % 0.3 % (0.0-1.0); EOS # 0.1 10^3/uL (0.0-0.5); EOS % 0.4 % (0.0-3.0); HEMATOCRIT 44.1 % (36.0-47.0); HEMOGLOBIN 14.6 g/dl (12.0-15.5); LYMPH # 1.5 10^3/uL (1.5-5.0); LYMPH % 11.1 % (24.0-44.0); MEAN CORPUSCULAR HEMOGLOBIN 29.7 pg (27.0-33.0); MEAN CORPUSCULAR HGB CONC 33.1 g/dl (32.0-36.5); MEAN CORPUSCULAR VOLUME 89.6 fl (80.0-96.0); MONO # 0.4 10^3/uL (0.0-0.8); MONO % 3.2 % (2.0-8.0); NEUTROPHILS # 11.5 10^3/uL (1.5-8.5); NEUTROPHILS % 84.6 % (36.0-66.0); PLATELET COUNT, AUTOMATED 230 10^3/uL (150-450); RED BLOOD COUNT 4.92 10^6/uL (4.00-5.40); WHITE BLOOD COUNT 13.6 10^3/uL (4.0-10.0)
[2022-04-23] MEDS ORDERED: NS 1,000 ML IV ONE (12:20)
[2022-04-23] MEDS ORDERED: ONDANSETRON 4MG 2ML VIAL IV ONE (12:20)
[2022-04-23 12:50] LABS: ALT/SGPT 18 U/L (12-78); BILIRUBIN,DIRECT < 0.1 MG/DL (0.0-0.2); BILIRUBIN,TOTAL 0.5 MG/DL (0.2-1.0); LIPASE 132 U/L (73-393); TOTAL PROTEIN 7.5 GM/DL (6.4-8.2)
[2022-04-23] MEDS: GASTROGRAFIN SOLUTION 30ML PO SCH ×2 (13:45→15:30)
[2022-04-23] MEDS ORDERED: ISOVUE-370 76% 100ML VIAL As Ordered ONE (14:07)
[2022-04-23] MEDS ORDERED: MORPHINE 4 MG/ML 1ML VIAL/SYRINGE IV ONE (15:15)
[2022-04-23] MEDS ORDERED: PROMETHAZINE 25MG/ML 1ML VIAL IV ONE (15:15)
[2022-04-23] MEDS ORDERED: NS 500 ML IV ONE (15:15)
[2022-04-23] MEDS ORDERED: KETOROLAC 30 MG/ML 1ML VIAL IV ONE (15:20)
[2022-04-23] MEDS ORDERED: NS 1,000 ML IV SCH (18:40)
[2022-04-23 19:39] LABS: RSV AMPLIFICATION NEGATIVE (NEGATIVE)
[2022-04-23] MEDS ORDERED: MESA0.37 PO (20:05)
[2022-04-23] MEDS ORDERED: CLOB0.057 PO (20:05)
[2022-04-23] MEDS ORDERED: THERTAB52 PO (20:05)
[2022-04-23] MEDS ORDERED: CLIN1GEL22 TOP (20:05)
[2022-04-23] MEDS ORDERED: MELA10CA6 PO (20:05)
[2022-04-23] MEDS ORDERED: SILV50CR TOP (20:05)
[2022-04-23] MEDS ORDERED: CALC0.006 TOP (20:05)
[2022-04-23] MEDS ORDERED: HOME MED LIST COMPLETE! XX SCH (20:10)
[2022-04-23] MEDS: NS 1,000 ML IV SCH ×2 (20:45→23:34)
[2022-04-23] MEDS: ONDANSETRON 4MG 2ML VIAL IV PRN (20:55)
[2022-04-23] MEDS ORDERED: MORPHINE 2 MG/ML 1ML VIAL IV PRN (21:00)
[2022-04-23 23:14] VITALS: BP 119/79
[2022-04-24] MEDS ORDERED: MORPHINE 2 MG/ML 1ML VIAL IV ONE
[2022-04-24] MEDS ORDERED: ACETAMINOPHEN 1000MG 100ML IV BTL (OFIRMEV) (J0131 PER 10MG) IV ONE (01:00)
[2022-04-24] MEDS ORDERED: MORPHINE 4 MG/ML 1ML VIAL/SYRINGE IV PRN (01:00)
[2022-04-24] MEDS: HEPARIN SOD (PORCINE) 5000UNITS/ML 1ML VIAL/SYRINGE SC SCH ×3 (06:11→22:00)
[2022-04-24 06:28] VITALS: BP 108/71
[2022-04-24 06:37] LABS: HEMATOCRIT 35.3 % (36.0-47.0); HEMOGLOBIN 11.3 g/dl (12.0-15.5); MEAN CORPUSCULAR HEMOGLOBIN 29.4 pg (27.0-33.0); MEAN CORPUSCULAR VOLUME 91.7 fl (80.0-96.0); PLATELET COUNT, AUTOMATED 180 10^3/uL (150-450); RED BLOOD COUNT 3.85 10^6/uL (4.00-5.40)
[2022-04-24 07:12] LABS: ALT/SGPT 10 U/L (12-78); BILIRUBIN,TOTAL 0.5 MG/DL (0.2-1.0); BLOOD UREA NITROGEN 8 MG/DL (7-18); CALCIUM LEVEL 7.5 MG/DL (8.5-10.1); CARBON DIOXIDE LEVEL 24 MEQ/L (21-32); CHLORIDE LEVEL 111 MEQ/L (98-107); GLOMERULAR FILTRATION RATE > 60.0 (>58); GLUCOSE, FASTING 93 MG/DL (70-100); POTASSIUM SERUM 3.2 MEQ/L (3.5-5.1); SODIUM LEVEL 140 MEQ/L (136-145); TOTAL PROTEIN 5.2 GM/DL (6.4-8.2)
[2022-04-24] MEDS ORDERED: KCL 10MEQ/100ML SWI (KRUN) 10 MEQ in IV 1 EA IV SCH (08:00)
[2022-04-24] MEDS ORDERED: INFLUENZA QUADRIVALENT PF VACCINE 0.5ML SYRINGE IM.IMMUN ONE (09:00)
[2022-04-24] MEDS ORDERED: MESALAMINE 400 MG CAPSULE DELAYED RELEASE (DELZICOL) PO SCH (09:00)
[2022-04-24] MEDS: ONDANSETRON 4MG 2ML VIAL IV PRN ×2 (09:16→19:24)
[2022-04-24] MEDS ORDERED: POTASSIUM CHLORIDE 10MEQ SR TABLET PO ONE (11:15)
[2022-04-24] MEDS: NS 1,000 ML IV SCH (11:23)
[2022-04-24 14:00] VITALS: BP 112/70
[2022-04-24] MEDS ORDERED: ACETAMINOPHEN TAB 650MG DOSE (2X325MG) PO PRN (14:30)
[2022-04-24] MEDS ORDERED: PROCHLORPERAZINE 10MG 2ML VIAL IV ONE (20:00)
[2022-04-24] MEDS ORDERED: diphenhydrAMINE 50MG/ML VIAL (J1200) IV ONE (20:00)
[2022-04-24 20:43] VITALS: BP 116/73
[2022-04-25] MEDS: HEPARIN SOD (PORCINE) 5000UNITS/ML 1ML VIAL/SYRINGE SC SCH ×2 (06:00→11:05)
[2022-04-25 06:20] LABS: HEMATOCRIT 34.8 % (36.0-47.0); HEMOGLOBIN 11.3 g/dl (12.0-15.5); MEAN CORPUSCULAR HEMOGLOBIN 29.4 pg (27.0-33.0); MEAN CORPUSCULAR HGB CONC 32.5 g/dl (32.0-36.5); MEAN CORPUSCULAR VOLUME 90.6 fl (80.0-96.0); PLATELET COUNT, AUTOMATED 160 10^3/uL (150-450); RED BLOOD COUNT 3.84 10^6/uL (4.00-5.40); WHITE BLOOD COUNT 7.4 10^3/uL (4.0-10.0)
[2022-04-25 06:39] VITALS: BP 116/72
[2022-04-25 07:07] LABS: ALBUMIN 3.1 GM/DL (3.2-5.2); ALT/SGPT 18 U/L (12-78); BILIRUBIN,TOTAL 0.5 MG/DL (0.2-1.0); BLOOD UREA NITROGEN 3 MG/DL (7-18); CALCIUM LEVEL 8.1 MG/DL (8.5-10.1); CARBON DIOXIDE LEVEL 24 MEQ/L (21-32); CHLORIDE LEVEL 110 MEQ/L (98-107); CREATININE FOR GFR 0.42 MG/DL (0.55-1.30); GLOMERULAR FILTRATION RATE > 60.0 (>58); GLUCOSE, FASTING 96 MG/DL (70-100); POTASSIUM SERUM 3.4 MEQ/L (3.5-5.1); SODIUM LEVEL 140 MEQ/L (136-145); TOTAL PROTEIN 5.7 GM/DL (6.4-8.2)
[2022-04-25] MEDS ORDERED: CAFFEINE CITRATE 60MG/3ML *ORAL SOLUTION PO ONE (08:00)
[2022-04-25] MEDS ORDERED: POTASSIUM CHLORIDE 10MEQ SR TABLET PO ONE (08:00)
[2022-04-25] MEDS ORDERED: EXCEDRIN MIGRAINE TABLET PO PRN (08:25)
[2022-04-25] MEDS ORDERED: COLA100C5 PO (09:04)
[2022-04-25] MEDS ORDERED: SENN8.6T28 PO (09:04)
== END 2022-04-25 11:40 | disposition home or self-care (01) | DRG 247 ==
LOC: M ED 09:55 → M ED INP 20:41 → ENRESERV 22:27 → M MS5PR 23:15
PROVIDERS: ADMIT Family Medicine; ATTEND Internal Medicine
DX: K56.600 Partial intestinal obstruction, unspecified as to cause (principal); K50.90 Crohn's disease, unspecified, without complications; E87.6 Hypokalemia; Z90.49 Acquired absence of other specified parts of digestive tract; Z79.899 Other long term (current) drug therapy; Z88.0 Allergy status to penicillin; Z88.8 Allergy status to other drugs, medicaments and biological substances

== ENCOUNTER → 2024-12-07 | Outpatient (REF) ==
[~2024-12-07] MED LIST changes: +CALC0.006 TOP; +CLIN1GEL22 TOP; +CLOB0.057 PO; +COLA100C5 PO; +MELA10CA6 PO; -MELA1TAB9 PO; +MELA5TAB58 PO; -OCTR100I IV; +OCTR100I11 IV; +ONDA-282 SL; -ONDA4TAB6 SL; +SENN8.6T28 PO; +SILV50CR TOP; +THERTAB52 PO
== END ==
LOC: M PLAIMG 14:05
PROVIDERS: ATTEND Internal Medicine
DX: M51.360 Other intervertebral disc degeneration, lumbar region with discogenic back pain only (principal)